=== PATIENT | male | born 1950 | race Caucasian/White ===

== ENCOUNTER 2017-06-22 14:52 | Observation (INO) | payer OTHER, SELFPAY ==
[~2017-06-22] VITALS: Ht 180.3 cm; Wt 90.7 kg
[~2017-06-22 14:52] MED LIST: Tamiflu75 MG PO
[2017-06-22 15:26] LABS: BASOPHILS ABSOLUTE AUTO 0.04 K/mm3 (0.00-0.23); BASOPHILS PERCENT AUTO 1 % (0-2); EOSINOPHILS ABSOLUTE AUTO 0.08 K/mm3 (0.00-0.68); EOSINOPHILS PERCENT AUTO 1 % (0-6); Hematocrit 34.2 % (37.0-53.0); Hemoglobin 11.3 g/dL (13.5-17.5); IMMATURE GRAN ABSOLUTE AUTO 0.02 K/mm3 (0.00-0.10); IMMATURE GRAN PERCENT AUTO 0 % (0-1); LYMPHOCYTES ABSOLUTE AUTO 1.01 K/mm3 (0.84-5.20); LYMPHOCYTES PERCENT AUTO 17 % (21-46); MONOCYTES PERCENT AUTO 7 % (4-13); Mean Corpuscular HGB 29.7 pg (26.0-34.0); Mean Corpuscular Volume 90 fL (80-100); NEUTROPHILS ABSOLUTE AUTO 4.35 K/mm3 (1.96-9.15); NEUTROPHILS PERCENT AUTO 74 % (41-73); RDW Coefficient Variation 14.1 % (11.7-14.2); Red Blood Cell Count 3.81 M/mm3 (4.30-5.90)
[2017-06-22 15:31] LABS: Alanine Aminotransfer (ALT/SGP 22 U/L (12-78); Albumin, Blood 3.5 g/dL (3.4-5.0); Alk Phos 71 U/L (50-136); Anion Gap 8 mmol/L (6-16); Aspartate Aminotrans (AST/SGOT 26 U/L (12-37); Bilirubin, Total 0.3 mg/dL (0.1-1.0); Blood Urea Nitrogen 9 mg/dL (8-24); Bun/Creatinine Ratio 11.7 (12.0-20.0); CO2, Blood 22 mmol/L (21-32); Calcium, Blood 8.6 mg/dL (8.5-10.1); Chloride, Blood 112 mmol/L (98-108); Creatinine, Blood 0.77 mg/dL (0.60-1.20); Globulin, Blood 3.4 g/dL (2.2-4.0); Glomerular Filtration Rate >60 (60-); Glucose, Blood 142 mg/dL (70-99); Potassium, Blood 3.9 mmol/L (3.5-5.5); Sodium, Blood 142 mmol/L (136-145); Total Protein, Blood 6.9 g/dL (6.4-8.2); Troponin I <0.015 ng/mL (0.000-0.040)
[2017-06-22 15:34] LABS: Mean Platelet Volume 11.4 fL (9.1-12.4); Platelet Count 130 K/mm3 (150-400)
[2017-06-22] MEDS ORDERED: [UNRECOGNIZED DRUG - CODE] PO (17:53)
[2017-06-22] MEDS ORDERED: GLIP5 PO (18:41)
[2017-06-22] MEDS ORDERED: METF500 PO (18:42)
[2017-06-22] MEDS ORDERED: SIMV40 PO (18:43)
[2017-06-22] MEDS ORDERED: LISI5 PO (18:43)
[2017-06-22 23:44] LABS: Creatine Kinase MB 1.4 ng/mL (0.0-3.6); Creatine Kinase MB Index 1.4 (0.0-4.0); Troponin I 0.102 ng/mL (0.000-0.040)
[2017-06-23 07:30] LABS: Hematocrit 36.7 % (37.0-53.0); Hemoglobin 12.4 g/dL (13.5-17.5); Mean Corpuscular HGB 29.7 pg (26.0-34.0); Mean Corpuscular HGB Conc 33.8 g/dL (31.5-36.5); Mean Corpuscular Volume 88 fL (80-100); Mean Platelet Volume 11.8 fL (9.1-12.4); Platelet Count 147 K/mm3 (150-400); RDW Coefficient Variation 14.1 % (11.7-14.2); RDW Standard Deviation 44.6 fL (35.1-46.3); Red Blood Cell Count 4.18 M/mm3 (4.30-5.90); White Blood Cell Count 5.56 K/mm3 (4.00-11.30)
[2017-06-23 07:50] LABS: Anion Gap 8 mmol/L (6-16); Blood Urea Nitrogen 10 mg/dL (8-24); Bun/Creatinine Ratio 13.9 (12.0-20.0); CHOL/HDL RATIO 3.2; CO2, Blood 23 mmol/L (21-32); Calcium, Blood 8.8 mg/dL (8.5-10.1); Chloride, Blood 111 mmol/L (98-108); Cholesterol 130 mg/dL (50-200); Creatinine, Blood 0.72 mg/dL (0.60-1.20); Glomerular Filtration Rate >60 (60-); Glucose, Blood 145 mg/dL (70-99); HDL Cholesterol 40 mg/dL (>39); LDL/HDL RATIO 1.8; Low Density Lipoprotein Chol 71 mg/dL (0-110); Potassium, Blood 3.9 mmol/L (3.5-5.5); Sodium, Blood 142 mmol/L (136-145); Triglycerides 95 mg/dL (30-160); Very Low Density Lipoprot Chol 19 mg/dL (6-32)
[2017-06-23 07:51] LABS: Creatine Kinase MB 1.3 ng/mL (0.0-3.6); Creatine Kinase MB Index 1.8 (0.0-4.0); Troponin I 0.028 ng/mL (0.000-0.040)
[2017-06-24] MEDS ORDERED: SERT100 PO (17:05)
[2017-06-24] MEDS ORDERED: NITR.4SL SL (17:06)
[2017-06-24] MEDS ORDERED: ASPI81CH PO (17:06)
== END 2017-06-24 17:22 | disposition home or self-care (01) ==
LOC: ER 14:52 → MEDS 14:53 → ENPENDDIS 06-24 17:16 → MEDS 06-24 17:22
PROVIDERS: Internal Medicine; Physician Assistant
DX: R07.89 Other chest pain (principal); I10 Essential (primary) hypertension; E11.40 Type 2 diabetes mellitus with diabetic neuropathy, unspecified; D69.6 Thrombocytopenia, unspecified; E78.5 Hyperlipidemia, unspecified; Z79.84 Long term (current) use of oral hypoglycemic drugs; Z79.899 Other long term (current) drug therapy; Z88.8 Allergy status to other drugs, medicaments and biological substances; Z87.891 Personal history of nicotine dependence; Z79.01 Long term (current) use of anticoagulants
CPT/HCPCS: 36415; 71046; 78452; 80048; 80053; 80061; 82550; 82553; 82947; 83036; 83880; 84484; 85025; 85027; 93005; 93010; 93017; 96372; 99284; A9500; G0378; J0280; J1650; J2785; J7040

== ENCOUNTER 2018-09-30 18:26 | Emergency (ER) | payer OTHER ==
[~2018-09-30] VITALS: Ht 170.2 cm; Wt 95.2 kg
[~2018-09-30 18:26] MED LIST changes: +ASPI81CH PO; +GLIP5 PO; +LISI5 PO; +METF500 PO; +METO50ER PO; +NITR.4SL SL; +SERT100 PO; +SIMV40 PO; +[UNRECOGNIZED DRUG - CODE] PO
[2018-09-30] MEDS ORDERED: Augmentin 875-1 EACH PO (19:54)
[2018-11-25] MEDS ORDERED: ATOR10 PO (13:01)
[2018-11-25] MEDS ORDERED: METF500 PO (13:01)
[2018-11-25] MEDS ORDERED: CLOP75 PO (13:02)
[2018-11-25] MEDS ORDERED: ESCI10 PO (13:02)
[2018-11-25] MEDS ORDERED: NOVOLIN N (13:03)
[2018-11-25] MEDS ORDERED: HYDR1TAB94 PO (13:03)
== END 2018-09-30 20:08 | disposition home or self-care (01) ==
LOC: ER 18:26
DX: S61.211A Laceration without foreign body of left index finger without damage to nail, initial encounter (principal); E11.9 Type 2 diabetes mellitus without complications; Z87.891 Personal history of nicotine dependence; Z88.8 Allergy status to other drugs, medicaments and biological substances; Z79.899 Other long term (current) drug therapy; Z79.82 Long term (current) use of aspirin; Z79.84 Long term (current) use of oral hypoglycemic drugs; W27.0XXA Contact with workbench tool, initial encounter
CPT/HCPCS: 73140; 90471; 90714; 99283-25

== ENCOUNTER → 2018-10-30 | Outpatient (CLI) | payer OTHER ==
[~2018-10-30] MED LIST changes: +ATOR10 PO; +Augmentin 875-1 EACH PO; +CLOP75 PO; +ESCI10 PO; +HYDR1TAB94 PO; +NOVOLIN N
== END | disposition home or self-care (01) ==
LOC: LAB SHORT 12:48 → PLD 12:48 → LAB SHORT 10-31 12:17
DX: C09.9 Malignant neoplasm of tonsil, unspecified (principal)
CPT/HCPCS: 88305; 88342

== ENCOUNTER → 2018-11-26 | Outpatient (CLI) | payer OTHER ==
[2018-11-26 13:06] LABS: Source, Urine Clean Catch
[2018-11-26 13:56] LABS: Bilirubin, Urine Neg (Neg); Blood, Urine 1+ (Neg); Glucose Qualitative, Urine 4+ (Neg); Ketones, Urine Neg (Neg); Leukocyte Esterase, Urine 3+ (Neg); Nitrite, Urine Pos (Neg); Protein, Urine 2+ (Neg); Specific Gravity, Urine 1.015 (1.003-1.022); Urobilinogen, Urine NORM (Normal)
[2018-11-26 14:06] LABS: Appearance, Urine Cloudy (Clear); Color, Urine Yellow (P-Yellow)
[2018-11-26 14:07] LABS: Bacteria Many /hpf; Red Blood Cells, Urine 0-2 /hpf (0-2); Squamous Epithelial Cells Not Seen /hpf (Few); White Blood Cells, Urine TNTC /hpf (0-5)
== END | disposition home or self-care (01) ==
LOC: LAB SHORT 13:05 → LAB 13:05
PROVIDERS: Registered Nurse Oncology
DX: C10.9 Malignant neoplasm of oropharynx, unspecified (principal); N17.9 Acute kidney failure, unspecified; R30.0 Dysuria
CPT/HCPCS: 81001; 87077; 87086; 87186

== ENCOUNTER 2018-11-27 10:01 | Day surgery (SDC) | payer OTHER ==
[~2018-11-27] VITALS: Ht 172 cm; Wt 94.3 kg
--- NOTE | 2018-11-27 11:13 | NUR ---
11/27/18 1113 Zaki Mccracken SEE ANNESTHESIA RECORD.
--- NOTE | 2018-11-27 11:19 | NUR ---
"DAY SURGERY RN | REPORT TO TIANNA ACOSTA. NO ISSUES. BOTH DOCTORS AND CIRCULATING RN HAS SEEN PATIENT. LIDOCAINE NEBULIZER GIVEN BY DR. PERAZA, CHARTED ON HIS PAPERWORK."
--- NOTE | 2018-11-27 11:30 | NUR ---
"DAY SURGERY RN | LIDOCAINE Lidocaine 4% nebulizer given by Dr. Alan, as he pulled a vial from the OR Pyxis, thus not needing medication from pharmacy. This RN cancelled previously placed order and sent medication back. Dr. Alan documented his medication on anethesia paperwork."
--- NOTE | 2018-11-27 13:15 | NUR ---
Patient up to Ambulate independently. Gait steady. Discharge instructions reviewed with patient. Patient verbalizes understanding. History, Chart, Medications and Allergies reviewed before start of procedure. Discharge instructions reviewed with patient. Patient verbalizes understanding. Discharged via wheelchair to private car for ride home.
== END 2018-11-27 13:26 | disposition home or self-care (01) ==
LOC: ORSCMMR 10:01 → ORD 11:30 → ORSCMMR 11:30
PROVIDERS: Surgery
PROC: 0DH63UZ Insertion of Feeding Device into Stomach, Percutaneous Approach (ICD-10-PCS; principal; 2018-11-27 11:30)
DX: C77.0 Secondary and unspecified malignant neoplasm of lymph nodes of head, face and neck (principal); D37.05 Neoplasm of uncertain behavior of pharynx; R13.12 Dysphagia, oropharyngeal phase; E11.40 Type 2 diabetes mellitus with diabetic neuropathy, unspecified; I10 Essential (primary) hypertension; I25.10 Atherosclerotic heart disease of native coronary artery without angina pectoris; Z87.891 Personal history of nicotine dependence; J44.9 Chronic obstructive pulmonary disease, unspecified; E78.5 Hyperlipidemia, unspecified; Z79.4 Long term (current) use of insulin; Z79.899 Other long term (current) drug therapy; Z79.02 Long term (current) use of antithrombotics/antiplatelets
CPT/HCPCS: 82947; C1769; J0330; J0690; J2001; J2250; J2405; J2704; J7120

== ENCOUNTER 2019-01-24 10:14 | Day surgery (SDC) | payer OTHER ==
[2019-01-23 11:22] LABS: BASOPHILS ABSOLUTE AUTO 0.01 K/mm3 (0.00-0.23); BASOPHILS PERCENT AUTO 0 % (0-2); EOSINOPHILS ABSOLUTE AUTO 0.02 K/mm3 (0.00-0.68); EOSINOPHILS PERCENT AUTO 1 % (0-6); Hematocrit 26.7 % (37.0-53.0); Hemoglobin 8.7 g/dL (13.5-17.5); IMMATURE GRAN PERCENT AUTO 0 % (0-1); LYMPHOCYTES ABSOLUTE AUTO 0.32 K/mm3 (0.84-5.20); LYMPHOCYTES PERCENT AUTO 10 % (21-46); MONOCYTES ABSOLUTE AUTO 0.53 K/mm3 (0.16-1.47); MONOCYTES PERCENT AUTO 17 % (4-13); Mean Corpuscular HGB 31.6 pg (26.0-34.0); Mean Corpuscular HGB Conc 32.6 g/dL (31.5-36.5); Mean Corpuscular Volume 97 fL (80-100); Mean Platelet Volume 11.4 fL (9.1-12.4); NEUTROPHILS ABSOLUTE AUTO 2.25 K/mm3 (1.96-9.15); NEUTROPHILS PERCENT AUTO 72 % (41-73); Platelet Count 191 K/mm3 (150-400); RDW Coefficient Variation 19.9 % (11.7-14.2); RDW Standard Deviation 65.6 fL (35.1-46.3); Red Blood Cell Count 2.75 M/mm3 (4.30-5.90); White Blood Cell Count 3.13 K/mm3 (4.00-11.30)
[~2019-01-24 10:14] MED LIST changes: +BASAGLAR K100 UNIT/2; +Cymbalta30 MG; +ESCI20 PO; +GLIP10 PO; +Pyridium200 MG PO
[2019-01-24] MEDS ORDERED: ONDA4 PO (11:05)
[2019-01-30] MEDS ORDERED: CLOP75 PO (22:24)
[2019-01-30] MEDS ORDERED: METO50 PO (22:24)
[2019-01-31] MEDS ORDERED: Cymbalta20 MG PO (00:31)
[2019-01-31] MEDS ORDERED: BASAGLAR K100 UNIT/2 SC (09:09)
== END 2019-01-24 13:45 | disposition home or self-care (01) ==
LOC: ATC 10:14 → MEDS 10:14 → ATC 13:45
PROVIDERS: Radiology Radiation Oncology
PROC: 30243N1 Transfusion of Nonautologous Red Blood Cells into Central Vein, Percutaneous Approach (ICD-10-PCS; principal; 2019-01-24)
DX: C10.9 Malignant neoplasm of oropharynx, unspecified (principal); C77.0 Secondary and unspecified malignant neoplasm of lymph nodes of head, face and neck; E11.9 Type 2 diabetes mellitus without complications; E78.5 Hyperlipidemia, unspecified; N40.1 Benign prostatic hyperplasia with lower urinary tract symptoms; N13.8 Other obstructive and reflux uropathy; H90.5 Unspecified sensorineural hearing loss; I10 Essential (primary) hypertension; F32.9 Major depressive disorder, single episode, unspecified; Z90.49 Acquired absence of other specified parts of digestive tract; Z87.891 Personal history of nicotine dependence; Z79.4 Long term (current) use of insulin; Z79.02 Long term (current) use of antithrombotics/antiplatelets; Z79.82 Long term (current) use of aspirin; Z79.899 Other long term (current) drug therapy; Z88.8 Allergy status to other drugs, medicaments and biological substances
CPT/HCPCS: 36415; 36430; 85025; 86850; 86900; 86901; 86923; P9016

== ENCOUNTER 2019-01-30 20:28 | Inpatient (IN) | payer OTHER ==
[~2019-01-30] VITALS: Ht 170.2 cm; Wt 86.4 kg
[~2019-01-30 20:28] MED LIST changes: +ONDA4 PO
[2019-01-30 20:54] LABS: Hematocrit 26.3 % (37.0-53.0); Mean Corpuscular HGB 32.1 pg (26.0-34.0); Mean Corpuscular HGB Conc 34.2 g/dL (31.5-36.5); Mean Corpuscular Volume 94 fL (80-100); Mean Platelet Volume 10.7 fL (9.1-12.4); Platelet Count 188 K/mm3 (150-400); RDW Standard Deviation 61.7 fL (35.1-46.3); White Blood Cell Count 3.41 K/mm3 (4.00-11.30)
[2019-01-30 21:12] LABS: Alanine Aminotransfer (ALT/SGP 73 U/L (12-78); Albumin, Blood 3.4 g/dL (3.4-5.0); Albumin/Globulin Ratio 0.8 (0.8-1.8); Alk Phos 212 U/L (50-136); Anion Gap 9 mmol/L (6-16); Aspartate Aminotrans (AST/SGOT 107 U/L (12-37); Bilirubin, Total 0.8 mg/dL (0.1-1.0); Blood Urea Nitrogen 23 mg/dL (8-24); Bun/Creatinine Ratio 32.6 (12.0-20.0); CO2, Blood 26 mmol/L (21-32); Calcium, Blood 9.3 mg/dL (8.5-10.1); Chloride, Blood 92 mmol/L (98-108); Creatinine, Blood 0.71 mg/dL (0.60-1.20); Globulin, Blood 4.3 g/dL (2.2-4.0); Glomerular Filtration Rate >60 (60-); Glucose, Blood 249 mg/dL (70-99); Potassium, Blood 4.2 mmol/L (3.5-5.5); Sodium, Blood 127 mmol/L (136-145); Total Protein, Blood 7.7 g/dL (6.4-8.2)
[2019-01-30 21:19] LABS: BAND PERCENT MAN 12 % (0-8); BASOPHILS ABSOLUTE MAN 0.03 K/mm3 (0.00-0.23); BASOPHILS PERCENT MAN 1 % (0-2); EOSINOPHILS ABSOLUTE MAN 0.03 K/mm3 (0.00-0.68); EOSINOPHILS PERCENT MAN 1 % (0-6); LYMPHOCYTES PERCENT MAN 9 % (21-46); MONOCYTES ABSOLUTE MAN 0.57 K/mm3 (0.16-1.47); MONOCYTES PERCENT MAN 17 % (4-13); NEUTROPHILS ABSOLUTE MAN 2.45 K/mm3 (1.96-9.15); SEG NEUTROPHILS PERCENT MAN 60 % (41-73); TOTAL CELLS COUNTED 100
[2019-01-30 21:42] LABS: Influenza A Negative (NEGATIVE); Influenza B Negative (NEGATIVE)
[2019-01-30] MEDS ORDERED: ASPI325 PO (22:23)
[2019-01-30] MEDS ORDERED: CLOP75 PO ×2 (22:24)
[2019-01-30] MEDS ORDERED: METO50 PO ×2 (22:24)
[2019-01-30 23:27] LABS: Source, Urine Clean Catch
[2019-01-30 23:29] LABS: Bilirubin, Urine Neg (Neg); Blood, Urine Neg (Neg); Glucose Qualitative, Urine 2+ (Neg); Ketones, Urine Neg (Neg); Leukocyte Esterase, Urine Neg (Neg); Nitrite, Urine Neg (Neg); Protein, Urine 2+ (Neg); Urobilinogen, Urine 1+ (Normal)
[2019-01-30 23:36] LABS: Appearance, Urine Clear (Clear); Bacteria Rare /hpf; Color, Urine Yellow (P-Yellow); Red Blood Cells, Urine Not Seen /hpf (0-2); Squamous Epithelial Cells Not Seen /hpf (Few); White Blood Cells, Urine 0-2 /hpf (0-5)
[2019-01-31] MEDS ORDERED: GLIP2.5ER PO (00:22)
[2019-01-31] MEDS ORDERED: Cymbalta20 MG PO ×2 (00:31)
--- NOTE | 2019-01-31 00:34 | NUR ---
ADMISSION: PATIENT IS RECIEVED FROM ER VIA STRETCHER. ABLE TO AMBULATE FROM STRETCHER TO BED WITH CONTACT ASSIST OF ONE. PATIENT IS PALE AND VERY WEAK. VS ARE STABLE. FREQUENT URINATION OBSERVED, TWICE IN 15 MINUTES. PATIENT AND ARE ORIENTED TO ROOM AND CALL [facility]. PATIENT IS INSTRUCTED TO USE CALL [facility] FOR ASSIST OOB AND BED ALARM IS ON FOR SAFETY.
--- NOTE | 2019-01-31 01:35 | NUR ---
/GI: PATIENT IS UP TO THE [facility] X4 DURING ADMISSION ONLY VOIDING 150MLS. BLADDER SCAN SHOWS OVER 500 MLS RETAINED. PATIENT ALSO HAS A PEG TUBE AND DOES BOLUS FEEDS AT HOME INDEPENDANTLY. AND PATIENT CAN NOT REMEMBER THE TYPE OF FORMULA USED FOR FEEDS. ALSO USES AN INSULIN PEN Q HS, THIS IS NOT ON MED REC. CAN NOT RECALL THE TYPE OF INSULIN. WILL CALL SON IN THE MORNING FOR THIS INFORMATION. CALL IS PLACED TO DR LIAO FOR ORDER FOR KILGORE.
[2019-01-31 02:41] LABS: Source, Urine Catheter
[2019-01-31 02:43] LABS: Bilirubin, Urine Neg (Neg); Blood, Urine Neg (Neg); Glucose Qualitative, Urine 3+ (Neg); Ketones, Urine Neg (Neg); Leukocyte Esterase, Urine Neg (Neg); Nitrite, Urine Neg (Neg); Protein, Urine Neg (Neg); Urobilinogen, Urine NORM (Normal); pH, Urine 6.5 (5.0-8.0)
[2019-01-31 03:07] LABS: Appearance, Urine Clear (Clear); Color, Urine Yellow (P-Yellow)
--- NOTE | 2019-01-31 05:45 | NUR ---
SHIFT SUMMARY: ORDER FOR KILGORE PLACEMENT FOR RETENTION IS OBTANED. SECOND RN PLACED KILGORE, PATIENT TOLERATED PROCEEDURE WELL. KILGORE PUT OUT 1475 ML OF A CLEAR YELLOW URINE. IVF ARE INFUSING PER MD ORDER. BED ALARM IS ON FOR FALL PREVENTION. PATIENT IS IN CONTACT [facility] UNTIL GI PANEL IS COLLECTED. IS SLEEPING ON THE COUCH.
[2019-01-31 06:14] LABS: Adenovirus Not Detected (NOT DETECT); Bordetella pertussis Not Detected (NOT DETECT); Chlamydophila pneumoniae Not Detected (NOT DETECT); Coronavirus 229E Not Detected (NOT DETECT); Coronavirus HKU1 Not Detected (NOT DETECT); Coronavirus NL63 Not Detected (NOT DETECT); Coronavirus OC43 Not Detected (NOT DETECT); Human Metapneumovirus Not Detected (NOT DETECT); Human Rhinovirus/Enterovirus Detected (NOT DETECT); Influenza A Not Detected (NOT DETECT); Influenza A/2009-H1 Not Detected (NOT DETECT); Influenza A/H1 Not Detected (NOT DETECT); Influenza A/H3 Not Detected (NOT DETECT); Influenza B Not Detected (NOT DETECT); Mycoplasma pneumoniae Not Detected (NOT DETECT); Parainfluenza Virus 1 Not Detected (NOT DETECT); Parainfluenza Virus 2 Not Detected (NOT DETECT); Parainfluenza Virus 3 Not Detected (NOT DETECT); Parainfluenza Virus 4 Not Detected (NOT DETECT); Respiratory Syncytial Virus Not Detected (NOT DETECT)
[2019-01-31] MEDS ORDERED: BASAGLAR K100 UNIT/2 SC ×2 (09:09)
[2019-01-31 09:14] LABS: Hematocrit 22.5 % (37.0-53.0); Hemoglobin 7.6 g/dL (13.5-17.5); Mean Corpuscular HGB 31.7 pg (26.0-34.0); Mean Corpuscular HGB Conc 33.8 g/dL (31.5-36.5); Mean Corpuscular Volume 94 fL (80-100); Mean Platelet Volume 11.1 fL (9.1-12.4); Platelet Count 152 K/mm3 (150-400); RDW Coefficient Variation 18.3 % (11.7-14.2); White Blood Cell Count 2.76 K/mm3 (4.00-11.30)
[2019-01-31 09:24] LABS: Alanine Aminotransfer (ALT/SGP 53 U/L (12-78); Albumin, Blood 2.9 g/dL (3.4-5.0); Albumin/Globulin Ratio 0.8 (0.8-1.8); Alk Phos 151 U/L (50-136); Anion Gap 7 mmol/L (6-16); Aspartate Aminotrans (AST/SGOT 55 U/L (12-37); Bilirubin, Total 0.4 mg/dL (0.1-1.0); Blood Urea Nitrogen 15 mg/dL (8-24); Bun/Creatinine Ratio 24.8 (12.0-20.0); CO2, Blood 26 mmol/L (21-32); Calcium, Blood 8.6 mg/dL (8.5-10.1); Chloride, Blood 101 mmol/L (98-108); Globulin, Blood 3.7 g/dL (2.2-4.0); Glomerular Filtration Rate >60 (60-); Glucose, Blood 209 mg/dL (70-99); Potassium, Blood 3.9 mmol/L (3.5-5.5); Sodium, Blood 134 mmol/L (136-145); Total Protein, Blood 6.6 g/dL (6.4-8.2)
--- NOTE | 2019-01-31 11:10 | NUR ---
Advance Directive education conducted.Upon receiving an admit referral requesting information about advance directives, I visit patient. Patient is not receptive having a box toe stitcher in or around his room but his spouse, Yolie, expresses interest in filling out an advance directive form. I explain the importance and process of the advance directive and leave the booklet with Yolie. I will continue to remain available to patient and family.
--- NOTE | 2019-01-31 20:04 | NUR ---
SHIFT SUMMARY PT AWAKE DURING SHIFT REPORT. ADMITTED FOR FEVER, IN CONTACT ISO TO R/O C-DIFF. 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 PT HAVING VOMITING AND DIARRHEA AT HOME, PER REPORT. PEG TUBE IN PLACE SINCE , PER DAUGHTER, WITH BOLUS FEEDINGS QID AT HOME. PER SHIFT REPORT, SON TO BRING IN TUBE FEEDING INFORMATION FOR DIETARY. SON DID NOT COME IN UNTIL LATE THIS AFTERNOON. DIETARY IN TO SEE PT FIRST THING IN AM TO DISCUSS FEEDING SCHEDULE, AMT, AND TYPE WITH PT AND . PT'S DAUGHTER THEN IN TO CK ON PT AND BECAME IRRITABLE AND RUDE THAT DR DUNN HAD NOT BEEN THERE BY 0700 AND TUBE FEEDING STARTED BY 0800. ATTEMPTED TO EDU FAMILY ON DR'S SCHEDULE AND INABILTIY TO START FEEDING W/O ORDERS AND LACK OF TUBE FEEDING INFO FROM FAMILY. DR DUNN IN TO SEE PT A FEW MINUTES LATER. DAUGHTER BECAME A LITTLE MORE PLEASANT. TUBE FEEDINGS STARTED PER ORDERS; PT HAS TOLERATED WELL W/O ANY RESIDUAL TO PRESENT. IV ABX START TODAY PER EMAR. KILGORE PLACED LAST NIGHT FOR RETENSION; 1400cc OUT AT TIME OF PLACEMENT AND HAS REMAINED PATENT. DAUGHTER REPORTED HX OF RETENSION AND KILGORE IN RECENT WEEKS. LAST CHEMO AND RADIATION THE DAY AFTER THANKSGI. PT REPORTED IT EFFECTIVE IN REDUCING THE SWELLING TO HIS THROAT AND FACE. PT ABLE TO EAT SM AMTS OF PUREE FOOD AND DRINK WARM LIQUIDS. C/O PAIN TO L NECK AREA TONIGHT, JUST PRIOR TO CHANGE OF SHIFT. DR DUNN NOTIFIED; NEW ORDERS RECEIVED AND ADMINISTERED PER EMAR. PT REPORTED THAT HE USALLY TAKES OXYCODONE AT HOME, BUT HE DIDNT NEED ANYTHING THAT STRONG. OFFERED TYLENOL, WHICH WAS ON EMAR AND PT BECAME IRRITABLE AND STATED, "JUST FORGET IT, THAT WON'T DO ANY GOOD". DISCUSSED WITH AND THEN CALLED DR DUNN. PERCOCET ORDERED PER PT AND REQUEST AND LATER REPORTED IT EFFECTIVE. PT HAS HAD EPISODES OF CONFUSION SINCE START OF SHIFT. PT NOW RESTING QUIETLY WITH IN RM. CALL LT IN HAND. REPORT GIVEN TO KODY ACOSTA.
--- NOTE | 2019-02-01 04:16 | NUR ---
68 year old PT with cancer in throat and tommy had recent chemo and radiation. PT had fever on admission, afebrile now after he was diapheretic. PT has gtube and bolus feeding given x 1 this shift. o residual. Denies nausea or acute pain. at bedside supportive. PT positive for rhino/entero virus. Some oral intake of warm water. Lemons cath was placed due to acute urinary retention. Lemons drains large amts of dilute yellow light urine with slight foul odor.
[2019-02-01 10:37] LABS: BASOPHILS ABSOLUTE AUTO 0.01 K/mm3 (0.00-0.23); BASOPHILS PERCENT AUTO 0 % (0-2); EOSINOPHILS ABSOLUTE AUTO 0.01 K/mm3 (0.00-0.68); EOSINOPHILS PERCENT AUTO 0 % (0-6); Hematocrit 21.7 % (37.0-53.0); Hemoglobin 7.3 g/dL (13.5-17.5); IMMATURE GRAN ABSOLUTE AUTO 0.02 K/mm3 (0.00-0.10); IMMATURE GRAN PERCENT AUTO 1 % (0-1); LYMPHOCYTES ABSOLUTE AUTO 0.17 K/mm3 (0.84-5.20); LYMPHOCYTES PERCENT AUTO 6 % (21-46); MONOCYTES ABSOLUTE AUTO 0.64 K/mm3 (0.16-1.47); MONOCYTES PERCENT AUTO 23 % (4-13); Mean Corpuscular HGB Conc 33.6 g/dL (31.5-36.5); Mean Corpuscular Volume 95 fL (80-100); Mean Platelet Volume 10.8 fL (9.1-12.4); NEUTROPHILS ABSOLUTE AUTO 1.88 K/mm3 (1.96-9.15); NEUTROPHILS PERCENT AUTO 69 % (41-73); Platelet Count 145 K/mm3 (150-400); RDW Standard Deviation 62.2 fL (35.1-46.3); Red Blood Cell Count 2.28 M/mm3 (4.30-5.90); White Blood Cell Count 2.73 K/mm3 (4.00-11.30)
[2019-02-01 10:53] LABS: Alanine Aminotransfer (ALT/SGP 59 U/L (12-78); Albumin, Blood 2.6 g/dL (3.4-5.0); Albumin/Globulin Ratio 0.7 (0.8-1.8); Alk Phos 169 U/L (50-136); Anion Gap 6 mmol/L (6-16); Aspartate Aminotrans (AST/SGOT 70 U/L (12-37); Bilirubin, Total 0.4 mg/dL (0.1-1.0); Blood Urea Nitrogen 15 mg/dL (8-24); CO2, Blood 27 mmol/L (21-32); Calcium, Blood 8.4 mg/dL (8.5-10.1); Chloride, Blood 99 mmol/L (98-108); Creatinine, Blood 0.62 mg/dL (0.60-1.20); Globulin, Blood 3.7 g/dL (2.2-4.0); Glomerular Filtration Rate >60 (60-); Glucose, Blood 270 mg/dL (70-99); Sodium, Blood 132 mmol/L (136-145); Total Protein, Blood 6.3 g/dL (6.4-8.2)
[2019-02-01 13:36] LABS: Vancomycin, Trough 11.5 ug/mL (5.0-10.0)
--- NOTE | 2019-02-01 15:39 | NUR ---
SUMMARY PT IS A/O X4, PLEASANT AFFECT. UP IND IN ROOM HOWEVER SOMEWHAT WEAK @ THIS TIME. SKIN IS PALE, H&H LOW 7.3/21.7. DR DUNN ORDER 2 UNITS PRBC, 1ST INFUSING @ THIS TIME. WBC 2.76, IV ANTIBX FOR NOW. HX TONSILLAR CA & RECENT CHEMO. DX FEVER, HE HAS BEEN AFEBRILE T/O DAY, VSS. HE STATE NOT ABLE TO EAT D/T CANCER, ONLY TAKING BITES PUREE FOODS, SM AMTS WARM WATER TO SWALLOW PILLS. TUBE FEEDING VIA PEG ORDERED 5X/DAY. SUPPORTIVE @ BEDSIDE T/O DAY, FAMILY IN TO VISIT THIS AFTERNOON.
--- NOTE | 2019-02-01 18:16 | NUR ---
2ND UNIT PRBC INFUSING. NO ADVERSE REACTIONS. VSS.
--- NOTE | 2019-02-01 21:05 | NUR ---
PT TOLERATED BLOOD TRANSFUSION W/O ANY S/S REACTION OR ADVERSE EVENT.
--- NOTE | 2019-02-01 23:25 | NUR ---
CALLED W/INSTRUCTION TO D/C KILGORE D/T NEEDING TO TRIAL WHETHER PT TOLERATES VOIDING WITHOUT ONE ON THIS ADMISSION. THEN COMMENCE Q4H BLADDER SCANS AND PLANS TO SEE PT TO REEVUALTE IN THE MORNING.
--- NOTE | 2019-02-02 | NUR ---
PATIENT AND WERE INFORMED THAT RX'D KILGORE TO BE REMOVED TO SEE IF PT TOLERATES VOIDING WITHOUT IT AND BLADDER SCANS TO FOLLOW. PT IS REFUSING TO HAVE KILGORE REMOVED DESPITE EDUCATION D/T NOT WANTING TO HAVE IT REPLACED GIVEN HIS KNOWN RETENTION ISSUES POST RADIATION THERAPY. STATED THAT HE IS TO SEE HIS UROLOGIST AT THE END OF THE MONTH AND PT DOESN'T WANT KILGROE PULLED UNTIL HE HAS OPPORTUNITY TO DISCUSS THIS FURTHER W/ IN THE MORNING. THIS RN ATTEMPTED TO CALL W/THIS UPDATE VIA [employer]'S ANSWERING SERVICE SINCE HE'D CALLED W/THE ORDERS LATE THIS EVENING BUT THE ANSWERING SERVICE REFUSED TO PAGE HIM. I WILL ENSURE DAY STAFF ARE AWARE.
--- NOTE | 2019-02-02 04:55 | NUR ---
SUMMARY: A/OX3, VERY UPPER [place] AND SPECIFIES NEEDS W/SUPPORTIVE REMAINING AT BEDSIDE. HE WAS DISCOURAGED BY NOT GETTING TO GO HOME ON DAY SHIFT D/T NEEDING BLOOD TRANSFUSIONS BUT PRBC'S WERE COMPLETED THIS SHIFT W/O S/S REACTION OR ADVERSE EVENT, AM CBC PENDING. PT RECIEVED IV ABX AND HAS SINCE BEEN SL. HE HAS PEG TUBE W/RESIDUAL 0 AND 2000 BOLUS AND FLUSHES RECIEVED RX'D. HE TOLERATED PO PILL AT HS W/WATER BUT PT DID COUGH AFTERWARD. HE REPORTS THAT HE DOESN'T CHOKE OR ASPIRATE W/MEDS BUT THAT HIS THROAT IS IRRITATED FROM RADIATION WHICH CAUSES HIM TO COUGH WHEN SIPPING LIQUIDS. PT HASN'T REQUIRED ANY ADDITIONAL PRN PAIN MEDS AFTER TOLERABLE THROAT PAIN WAS RELIEVED ON DAY SHIFT. KILGORE FOR URINARY RETENTION REMAINS PATENT AND DRAINING. RX'D TO DC KILGORE TONIGHT AND PERFORM Q4H BLADDER SCANS TO CHECK FOR RETENTION BUT PT REFUSED HAVING IT REMOVED. SEE PREVIOUS NOTE FOR THOSE DETAILS. NO ACUTE CHANGES, VSS/AFEBRILE. WCTM AND REPORT TO DAY RN.
[2019-02-02 05:13] LABS: Hematocrit 27.1 % (37.0-53.0); Hemoglobin 9.2 g/dL (13.5-17.5); Mean Corpuscular HGB 31.4 pg (26.0-34.0); Mean Corpuscular HGB Conc 33.9 g/dL (31.5-36.5); Mean Corpuscular Volume 93 fL (80-100); Mean Platelet Volume 10.9 fL (9.1-12.4); Platelet Count 160 K/mm3 (150-400); RDW Coefficient Variation 17.7 % (11.7-14.2); RDW Standard Deviation 59.4 fL (35.1-46.3); Red Blood Cell Count 2.93 M/mm3 (4.30-5.90); White Blood Cell Count 4.07 K/mm3 (4.00-11.30)
[2019-02-02 05:35] LABS: BAND PERCENT MAN 20 % (0-8); BASOPHILS PERCENT MAN 0 % (0-2); EOSINOPHILS ABSOLUTE MAN 0.04 K/mm3 (0.00-0.68); EOSINOPHILS PERCENT MAN 1 % (0-6); LYMPHOCYTES ABSOLUTE MAN 0.36 K/mm3 (0.84-5.20); LYMPHOCYTES PERCENT MAN 9 % (21-46); MONOCYTES ABSOLUTE MAN 0.48 K/mm3 (0.16-1.47); MONOCYTES PERCENT MAN 12 % (4-13); MYELOCYTE ABSOLUTE MAN 0.04 K/mm3 (0.00-0.00); MYELOCYTE PERCENT MAN 1 % (0-0); NEUTROPHILS ABSOLUTE MAN 3.13 K/mm3 (1.96-9.15); SEG NEUTROPHILS PERCENT MAN 57 % (41-73); TOTAL CELLS COUNTED 100
--- NOTE | 2019-02-02 05:35 | NUR ---
HGB/HCT IMPROVED THIS AM, NOW 9.2/27.1.
--- NOTE | 2019-02-02 12:21 | NUR ---
DISCHARGE H&H IMPROVED TODAY AFTER 2 UNIT PRBC YESTERDAY, 9.2/27.1, WBC ALSO IMPROVED @ 2.9, DR DUNN IN TO SEE PT/, STATE OK FOR D/C HOME TODAY. NO NEW SCRIPTS. D/C INSTRUCT PROVIDED W EMPHASIS ON KILGORE CATH CARE & F/U WITH UROLOGIST SCHEDULED. PEG TUBE CARE PROVIDED. IV D/C INTACT. LEG BAG FOR CATHETER PROVIDED. W/C ESCORT FROM HOSP PROVIDED. PT IS PLEASANT/APPRECIATIVE STATE READY FOR D/C HOME.
== END 2019-02-02 11:58 | disposition home or self-care (01) | DRG 809 ==
LOC: ER 20:28 → MEDS 22:42
PROVIDERS: Internal Medicine; Physician Assistant; ADMIT Internal Medicine
PROC: 30233N1 Transfusion of Nonautologous Red Blood Cells into Peripheral Vein, Percutaneous Approach (ICD-10-PCS; principal; 2019-01-30)
DX: D70.1 Agranulocytosis secondary to cancer chemotherapy (principal); C77.0 Secondary and unspecified malignant neoplasm of lymph nodes of head, face and neck; C09.9 Malignant neoplasm of tonsil, unspecified; N13.9 Obstructive and reflux uropathy, unspecified; I10 Essential (primary) hypertension; E78.5 Hyperlipidemia, unspecified; E11.40 Type 2 diabetes mellitus with diabetic neuropathy, unspecified; T45.1X5A Adverse effect of antineoplastic and immunosuppressive drugs, initial encounter; R13.12 Dysphagia, oropharyngeal phase; R33.9 Retention of urine, unspecified; B34.8 Other viral infections of unspecified site; B97.10 Unspecified enterovirus as the cause of diseases classified elsewhere; Z87.440 Personal history of urinary (tract) infections; Z51.5 Encounter for palliative care; R50.81 Fever presenting with conditions classified elsewhere; D64.81 Anemia due to antineoplastic chemotherapy; D63.0 Anemia in neoplastic disease
CPT/HCPCS: 0099U; 36415; 36430; 51798; 71046; 80053; 80202; 81001; 81003; 82947; 83605; 83690; 84145; 85025; 85027; 86850; 86900; 86901; 86923; 87040; 87804; 93005; 93010; 96361; 96365; 96375; 99284-25; J0692; J0696; J1650; J2405; J3370; J7030; J7040; J7050; P9016

== ENCOUNTER 2019-02-22 08:31 | Emergency (ER) | payer OTHER ==
[~2019-02-22] VITALS: Ht 170.2 cm; Wt 83.9 kg
[~2019-02-22 08:31] MED LIST changes: +ASPI325 PO; +BASAGLAR K100 UNIT/2 SC; +Cymbalta20 MG PO; +GLIP2.5ER PO; +METO50 PO
[2019-02-22 08:57] LABS: BASOPHILS ABSOLUTE AUTO 0.04 K/mm3 (0.00-0.23); BASOPHILS PERCENT AUTO 1 % (0-2); EOSINOPHILS ABSOLUTE AUTO 0.18 K/mm3 (0.00-0.68); EOSINOPHILS PERCENT AUTO 3 % (0-6); Hematocrit 38.5 % (37.0-53.0); Hemoglobin 12.6 g/dL (13.5-17.5); IMMATURE GRAN ABSOLUTE AUTO 0.01 K/mm3 (0.00-0.10); IMMATURE GRAN PERCENT AUTO 0 % (0-1); LYMPHOCYTES ABSOLUTE AUTO 0.85 K/mm3 (0.84-5.20); LYMPHOCYTES PERCENT AUTO 15 % (21-46); MONOCYTES ABSOLUTE AUTO 0.52 K/mm3 (0.16-1.47); MONOCYTES PERCENT AUTO 9 % (4-13); Mean Corpuscular HGB Conc 32.7 g/dL (31.5-36.5); Mean Corpuscular Volume 98 fL (80-100); Mean Platelet Volume 12.2 fL (9.1-12.4); NEUTROPHILS ABSOLUTE AUTO 4.04 K/mm3 (1.96-9.15); NEUTROPHILS PERCENT AUTO 72 % (41-73); Platelet Count 121 K/mm3 (150-400); RDW Coefficient Variation 16.8 % (11.7-14.2); RDW Standard Deviation 60.4 fL (35.1-46.3); Red Blood Cell Count 3.94 M/mm3 (4.30-5.90); White Blood Cell Count 5.64 K/mm3 (4.00-11.30)
[2019-02-22] MEDS ORDERED: METO10 PO (09:09)
[2019-02-22 09:15] LABS: Alanine Aminotransfer (ALT/SGP 24 U/L (12-78); Albumin, Blood 3.7 g/dL (3.4-5.0); Albumin/Globulin Ratio 0.9 (0.8-1.8); Alk Phos 118 U/L (50-136); Anion Gap 7 mmol/L (6-16); Aspartate Aminotrans (AST/SGOT 18 U/L (12-37); Bilirubin, Total 0.4 mg/dL (0.1-1.0); Blood Urea Nitrogen 23 mg/dL (8-24); Bun/Creatinine Ratio 31.3 (12.0-20.0); CO2, Blood 25 mmol/L (21-32); Calcium, Blood 9.6 mg/dL (8.5-10.1); Chloride, Blood 107 mmol/L (98-108); Creatinine, Blood 0.73 mg/dL (0.60-1.20); Globulin, Blood 4.1 g/dL (2.2-4.0); Glomerular Filtration Rate >60 (60-); Glucose, Blood 231 mg/dL (70-99); Potassium, Blood 4.6 mmol/L (3.5-5.5); Sodium, Blood 139 mmol/L (136-145); Total Protein, Blood 7.8 g/dL (6.4-8.2)
== END 2019-02-22 10:00 | disposition home or self-care (01) ==
LOC: ER 08:31
PROVIDERS: Emergency Medicine
DX: R53.1 Weakness (principal); Z88.8 Allergy status to other drugs, medicaments and biological substances; Z79.899 Other long term (current) drug therapy; Z79.4 Long term (current) use of insulin; E11.40 Type 2 diabetes mellitus with diabetic neuropathy, unspecified; I10 Essential (primary) hypertension; Z87.891 Personal history of nicotine dependence
CPT/HCPCS: 36415; 80053; 85025; 86850; 86900; 86901; 99283